=== PATIENT | female | born 1975 ===

== ENCOUNTER 2021-10-03 22:22 | Emergency (ER) | payer OTHER ==
[~2021-10-03] VITALS: Ht 157.5 cm; Wt 72.0 kg
[2021-10-03] MEDS ORDERED: METHOCARBAMOL 500MG TABLET PO ONE (23:30)
[2021-10-03] MEDS ORDERED: KETOROLAC 60MG/2ML VIAL IM ONE (23:30)
[2021-10-04 01:03] VITALS: BP 145/92
[2021-10-04] MEDS ORDERED: DIAZEPAM 5 MG/ML 2ML CPJ IM ONE (02:00)
[2021-10-04] MEDS ORDERED: NAPR500T7 MT (03:08)
[2021-10-04] MEDS ORDERED: DIAZ5TAB MT (03:08)
== END 2021-10-04 03:15 | disposition home or self-care (01) ==
LOC: ER 22:22
DX: M62.830 Muscle spasm of back (principal); M54.2 Cervicalgia; M54.6 Pain in thoracic spine; Z90.710 Acquired absence of both cervix and uterus; Z88.2 Allergy status to sulfonamides
CPT/HCPCS: 96372; 99284; J1885